=== PATIENT | female | born 1990 | race Caucasian/White ===

== ENCOUNTER → 2022-09-19 | Outpatient (CLI) | payer BC ==
--- NOTE | 2022-09-19 15:46 | Diagnostic Imaging Report ---
PROCEDURE: Pelvic comp/transvaginal sonogram. TECHNIQUE: Complete transabdominal and transvaginal pelvic ultrasound was performed. In addition, limited pelvic Doppler was performed. INDICATION: Abnormal uterine bleeding. The uterus is anteverted measuring 7.2 x 3.2 x 5.1 cm. Endometrium is 3 mm in thickness. No myometrial mass is detected. Right ovary measures 3.1 x 2.8 x 2.1 cm and the left ovary measures 8.3 x 5.0 x 7.6 cm. The right ovary does contain a 2.2 cm cyst. The left ovary contains 2 cysts. There is a 3 cm simple cyst. There is also an approximately 5.9 cm more complex cyst in the left ovary which does contain some internal debris and likely hemorrhagic. There is blood flow to both ovaries. No free fluid is seen. IMPRESSION: 1. Bilateral ovarian cysts, complex on the left measuring up to 5.9 cm. Follow-up ultrasound in 6-8 weeks would be recommended to confirm clearing. Dictated by: Dictated on workstation # [id number]
== END ==
LOC: RAD 13:30
PROVIDERS: ATTEND Obstetrics & Gynecology
DX: N83.202 Unspecified ovarian cyst, left side (principal); N83.201 Unspecified ovarian cyst, right side; N93.9 Abnormal uterine and vaginal bleeding, unspecified
CPT/HCPCS: 76830; 76856

== ENCOUNTER → 2022-11-26 | Outpatient (CLI) | payer BC ==
--- NOTE | 2022-11-26 17:14 | Diagnostic Imaging Report ---
PROCEDURE: Pelvic comp/transvaginal sonogram. TECHNIQUE: Complete transabdominal and transvaginal pelvic ultrasound was performed. In addition, limited pelvic Doppler was performed. INDICATION: Follow-up of complex left ovarian cyst. COMPARISON: Correlation is made with prior pelvic ultrasound from 09/19/2022. FINDINGS: Uterus is anteverted measuring 7.5 x 3.4 x 5.0 cm. Endometrium is 2 mm in thickness. No myometrial mass is detected. Right ovary measures 4.1 x 2.8 x 2.6 cm and contains small follicles. Right ovary demonstrates blood flow. Left ovary is enlarged by two cystic lesions. A simple cyst noted previously is slightly increased in size measuring 3.2 cm compared with 3.0 cm. The complex cystic lesion has also increased in size now measuring approximately 6.7 cm compared with 5.9 cm. This remains complex with internal debris. There is blood flow to the left ovary as well. No free fluid is seen. IMPRESSION: Overall increase in size of a left ovarian cyst when compared with prior study from 09/19/2022. Complex, likely hemorrhagic cyst is now 6.7 cm. Continued follow-up would be recommended. Dictated by: Dictated on workstation # [id number]
== END ==
LOC: RAD 09:49
PROVIDERS: ATTEND Obstetrics & Gynecology
DX: N83.292 Other ovarian cyst, left side (principal)
CPT/HCPCS: 76830; 76856

== ENCOUNTER → 2022-12-24 | Outpatient (CLI) | payer BC ==
--- NOTE | 2022-12-24 16:14 | Diagnostic Imaging Report ---
PROCEDURE: US Non-ob pelvis comp/trans. TECHNIQUE: Multiple realtime grayscale images were obtained of the pelvis in various projections endovaginally. Transabdominal imaging was also performed. INDICATION: Left ovarian cyst followup. COMPARISON: 11/26/2022 FINDINGS: The uterus measures 7.4 x 3.3 x 4.7 cm. The endometrium measures 3 mm in thickness. No uterine masses are seen. There is no significant free fluid. The right ovary measures 4.0 x 2.6 x 2.5 cm. The left ovary measures 6.0 x 4.9 x 6.8 cm. There is blood flow in the right ovary. There appears to be blood flow left ovary, although more difficult to see due to the large cyst present. This includes a 6.0 cm cystlike lesion with internal echoes measuring 6.7 cm previously. There is a simple appearing cyst measuring 3 cm, previously 3.2 cm. IMPRESSION: 1. Large left ovarian cyst with internal echoes, could represent a hemorrhagic cyst or endometrioma. This is slightly decreased in size since the prior study. 2. Simple appearing left ovarian cyst measuring 3 cm, stable to slightly decreased in size since the prior study. Dictated by: Dictated on workstation # [id number]
== END ==
LOC: RAD 13:32
PROVIDERS: ATTEND Obstetrics & Gynecology
DX: N83.202 Unspecified ovarian cyst, left side (principal)
CPT/HCPCS: 76830; 76856

== ENCOUNTER → 2023-01-16 | Outpatient (CLI) | payer BC ==
[2023-01-16 11:09] LABS: BACTERIA,URINE NEGATIVE /HPF; BILIRUBIN,URINE NEGATIVE (NEGATIVE); CLARITY,URINE CLEAR; COLOR,URINE YELLOW; GLUCOSE, URINE (UA) NEGATIVE (NEGATIVE); KETONES,URINE NEGATIVE (NEGATIVE); LEUKOCYTE ESTERASE ,URINE NEGATIVE (NEGATIVE); NITRITE,URINE NEGATIVE (NEGATIVE); PH,URINE 6.5 (5-9); PROTEIN,URINE NEGATIVE (NEGATIVE)
== END ==
LOC: LAB 10:36
PROVIDERS: ATTEND Obstetrics & Gynecology
DX: R30.0 Dysuria (principal)
CPT/HCPCS: 81000; 87077; 87088